=== PATIENT | female | born 1950 | race Caucasian/White ===

== ENCOUNTER 2018-09-24 08:45 | Inpatient (IN) ==
[2018-09-24] MEDS ORDERED: 0.9 % Sodium Chloride 1,000 ML IVC ONE (09:28)
[2018-09-24] MEDS ORDERED: Ondansetron 4 MG/2 ML VIAL IVP ONE (09:28)
--- NOTE | 2018-09-24 10:13 | Emergency Department Note ---
Disposition Clinical Impression: Hypokalemia Pneumonia Qualifiers: Pneumonia type: due to unspecified organism Laterality: right Lung location: unspecified part of lung Qualified Code(s): J18.9 - Pneumonia, unspecified organism Disposition: Admitted As Inpatient Condition: Fair Time of Disposition: 12:34 (Akanksha Maddox ([facility])) General Adult HPI - General Chief complaint: ED General Medical Stated complaint: flu symptoms Time Seen by Provider: 09/24/18 09:26 Source: patient Mode of arrival: ambulatory Limitations: no limitations Nursing Notes Reviewed: Yes Vital Signs Reviewed: Yes - History of Present Illness HPI Narrative: Started last evening having generalized aches fever chills took Tylenol 1 took Motrin 1 been getting relief with it started having vomiting since continue to the night she now presents here to the emergency room states she has had fever chills cough congestion she has had no sore throat she has had no runny nose she aches all over she denies any blurred vision double vision states that she is weak she does not think that she can go home she just feels worn out and drain she denies any distal complaints with complete entire review systems Onset (ago): day(s) Radiation: non-radiation Pain Severity: mild Pain Scale: 3 Improves with: nothing Worsens with: nothing Associated symptoms: Reports: cough, fever/chills, loss of appetite, malaise, nausea/vomiting, shortness of breath, weakness. Denies: confusion, chest pain, diaphoresis, headaches, rash, seizure, syncope Treatments Prior to Arrival: NSAID, Aspirin - Related Data Home Medications Medication Instructions Recorded Confirmed Albuterol Sulfate [Proventil Hfa] 2 puff IH Q4H PRN 09/24/18 09/24/18 Amlodipine Besylate/Benazepril 1 each PO DAILY 09/24/18 09/24/18 [Lotrel 10-20 mg Capsule] Aspirin [Adult Aspirin Regimen] 81 mg PO DAILY 09/24/18 09/24/18 Clopidogrel [Plavix] 75 mg PO DAILY 09/24/18 09/24/18 Ezetimibe [Zetia] 10 mg PO DAILY 09/24/18 09/24/18 Fluticasone Propionate Nasal 50 mcg NS BID 09/24/18 09/24/18 [Flonase] Furosemide [Lasix] 40 mg PO DAILY 09/24/18 09/24/18 HYDROcodone/Acet 7.5/325 mg [Bliss 1 tab PO Q4-6H PRN 09/24/18 09/24/18 7.5-325 mg] Insulin ASPART [Novolog Flexpen] 6 - 8 unit SQ QID 09/24/18 09/24/18 Insulin Glargine,Hum.rec.anlog 62 unit SQ HS 09/24/18 09/24/18 [Lantus Solostar] Ipratropium/Albuterol Neb [Duoneb] 3 ml IH QID 09/24/18 09/24/18 Linagliptin [Tradjenta] 5 mg PO DAILY 09/24/18 09/24/18 Losartan/Hydrochlorothiazide 1 each PO BID 09/24/18 09/24/18 [Losartan-Hctz 100-25 mg Tab] Metformin HCl [Fortamet] 1,000 mg PO BID 09/24/18 09/24/18 Metoprolol Succinate [Toprol Xl] 200 mg PO DAILY 09/24/18 09/24/18 Potassium Chloride [Klor-Con 10] 10 meq PO DAILY 09/24/18 09/24/18 Umeclidinium Brm/Vilanterol Tr 1 each IH DAILY 09/24/18 09/24/18 [Anoro Ellipta 62.5-25 Mcg INH] Allergies Allergy/AdvReac Type Severity Reaction Status Date / Time Amoxicillin [From Trimox] Allergy Rash Verified 09/24/18 08:59 Penicillins Allergy Rash Verified 09/24/18 08:59 All systems ED: reviewed and negative except as stated. Review of Systems: As Per HPI Constitutional: Reports: fever, chills, weakness Eyes: Denies: eye pain, eye discharge ENT ED: Reports: congestion. Denies: ear pain, throat pain Cardiovascular: Reports: dyspnea on exertion. Denies: chest pain, palpitations Respiratory: Reports: cough, wheezes. Denies: sputum production Gastrointestinal: Reports: abdominal pain, nausea, vomiting. Denies: diarrhea Genitourinary: Denies: urgency, dysuria Musculoskeletal: Denies: back pain Integumentary: Denies: rash Neurological: Denies: headache Psychiatric: Denies: anxiety Endocrine: Reports: fatigue Hematological/Lymphatic: Denies: easy bleeding Allergic/Immunologic: Denies: facial swelling Past Medical History - Past Medical History Attestation: Yes The following information was validated with the patient. Source: patient, old records reviewed, nursing notes reviewed Medical history: Reports: atrial fibrillation, COPD, diabetes, hyperlipidemia, hypertension, peripheral artery disease Surgical history: Reports: cholecystectomy, other Psychiatric history: Reports: no psych history [employer] history: Reports: no [employer] history - Social History Smoking Status: Current every day smoker Smokeless Tobacco Status: No Alcohol use: Reports: none Drug use: Reports: none Physical Exam - General Limitations: no limitations General appearance: alert, in no apparent distress - Head Head exam: atraumatic, normocephalic, normal inspection - Eye Eye exam: Present: normal appearance, PERRL, EOMI - ENT ENT exam: normal exam, normal oropharynx, mucous membranes moist, TM's normal bilaterally, normal external ear exam - Neck Neck exam: Present: normal inspection, full ROM, trachea midline - Chest Chest inspection: Present: normal inspection, symmetric chest wall rise - Respiratory Respiratory exam: Present: normal lung sounds bilaterally - Cardiovascular Cardiovascular exam: Present: regular rate, normal rhythm, normal heart sounds - Abdominal Exam Abdominal exam: Present: soft, Non-Tender, normal bowel sounds. Absent: mass, pulsatile mass - Extremities Exam Extremities exam: Present: normal inspection, full ROM, normal capillary refill. Absent: tenderness, pedal edema, joint swelling, calf tenderness - Expanded Lower Extremity Exam Neurovascular/Tendon exam: Present: normal capillary refill, normal fine/light touch Gait: observed and normal - Back Exam Back exam: Present: normal inspection, full ROM. Absent: muscle spasm - Neurological Exam Neurological exam: Present: alert, oriented X3, CN II-XII intact, normal gait - Psychiatric Psychiatric exam: Present: normal affect, normal mood - Skin Skin exam: Present: warm, dry, intact, normal color - Other Other exam information: Ill appearing much older than stated elderly female appears frail Course Course Narrative: Patient seen and examined workup shows that she has what appears to be consistent with viral pneumonia the patient home she is too weak tired her hypokalemia will admit her for observation after Mizer stable Vital Signs Temperature 98.4 F 09/24/18 08:51 Pulse Rate 110 09/24/18 08:51 Respiratory Rate 16 09/24/18 08:51 Blood Pressure 152/81 09/24/18 08:51 O2 Sat by Pulse Oximetry 95 09/24/18 08:51 Temperature 98.7 F 09/24/18 23:48 Pulse Rate 71 09/24/18 23:48 Respiratory Rate 19 09/24/18 23:48 Blood Pressure 172/68 09/24/18 23:48 O2 Sat by Pulse Oximetry 94 09/24/18 23:48 Oxygen Delivery Oxygen Delivery Room Air Medical Decision Making - MDM Narrative Medical decision making narrative: Pneumonia bronchitis influenza - Medical Records Medical records reviewed: Yes I reviewed the patient's medical records. - Lab Data Lab results reviewed: Yes I reviewed the patient's lab results. Result diagrams: 09/24/18 10:00 09/24/18 20:15 Lab Results 09/24/18 09/24/18 Range/Units 10:00 10:00 WBC 11.2 H (4.3-11.1) K/mcL RBC 4.98 H (3.82-4.97) M/mcL Hgb 16.3 H (11.5-15.4) g/dL Hct 47.0 H (35.3-44.9) % MCV 94.4 (83.0-100.0) fL MCH 32.7 (28.0-33.3) pg MCHC 34.7 (31.6-35.5) g/dL RDW 13.2 (11.5-14.5) % Plt Count 262 (140-400) K/mcL MPV 9.0 L (9.4-12.4) fL Immature Gran % 0.4 (0-4) % Seg Neutrophils % 87.8 % Lymphocytes % 9.3 % Monocytes % 2.4 % Eosinophils % 0.0 % Basophils % 0.1 % Neutrophils # 10.5 H (1.6-8.9) K/mcL Lymphocytes # 1.1 (0.6-4.6) K/mcL Monocytes # 0.3 (0.0-1.3) K/mcL Eosinophils # 0.0 (0.0-0.6) K/mcL Basophils # 0.0 (0.0-0.2) K/mcL Sodium 133 L (136-145) mEq/L Potassium 2.9 L (3.5-5.1) mEq/L Chloride 92 L (98-107) mEq/L Carbon Dioxide 26 (23-29) mEq/L BUN 12 (8-23) mg/dL Creatinine 0.68 (0.60-1.20) mg/dL Est GFR ( Amer) > 60 (> 60) Est GFR (Non-Af Amer) > 60 (> 60) BUN/Creatinine Ratio 18 (6-26) Glucose 258 H (70-105) mg/dL Calculated Osmolality 285 (280-300) Calcium 10.0 (8.6-10.3) mg/dL - Radiology Data Radiology results reviewed: Yes I reviewed the patient's radiology results. ITS Impressions Chest X-Ray 09/24/18 09:26 IMPRESSION: Increased perihilar markings with prominence of interstitial lung markings. Findings may be seen in setting of atypical or viral infection, or pulmonary interstitial edema. Correlation with volume status is recommended. No focal consolidation identified. No significant pleural effusion. D/ / 09/24/2018 10:31:18 Jaswinder Sauceda MD / [facility] Interpreting Provider: Jaswinder Sauceda MD Critical Care Time Critical Care Time: No
[2018-09-24 10:32] LABS: Hemoglobin 16.3 g/dL (11.5-15.4); Mean Corpuscular HGB Conc 34.7 g/dL (31.6-35.5); Mean Corpuscular Hemoglobin 32.7 pg (28.0-33.3); Mean Corpuscular Volume 94.4 fL (83.0-100.0); Platelet Count 262 K/mcL (140-400); Red Blood Count 4.98 M/mcL (3.82-4.97); Red Cell Distribution Width 13.2 % (11.5-14.5)
[2018-09-24 10:39] LABS: BUN/Creatinine Ratio 18 (6-26); Blood Urea Nitrogen 12 mg/dL (8-23); Carbon Dioxide 26 mEq/L (23-29); Chloride 92 mEq/L (98-107); Glucose 258 mg/dL (70-105); Osmolality,Calculated 285 (280-300); Potassium 2.9 mEq/L (3.5-5.1); Sodium 133 mEq/L (136-145); eGFR For Non-African Americans > 60 (> 60)
[2018-09-24] MEDS ORDERED: Azithromycin 500 MG in D5% in Water 250 ML IVPB ONE (11:31)
[2018-09-24] MEDS ORDERED: Potassium Effervescent 25 MEQ TABLET.EFF PO ONE (11:37)
[2018-09-24 12:26] LABS: Basophils % 0.1 %; Immature Granulocytes % 0.4 % (0-4); Lymphocytes # 1.1 K/mcL (0.6-4.6); Lymphocytes % 9.3 %; Monocytes # 0.3 K/mcL (0.0-1.3); Monocytes % 2.4 %; Neutrophils # 10.5 K/mcL (1.6-8.9); Segmented Neutrophils % 87.8 %
[2018-09-24] MEDS ORDERED: *HR* Dextrose 50 % in Water (Syg) 50 ML SYRINGE IVP PRN (14:14)
[2018-09-24] MEDS ORDERED: Dextrose Gel 15 GM/37.5 ML TUBE PO PRN ×2 (14:14)
[2018-09-24] MEDS ORDERED: D5% in Water 1,000 ML IVC PRN (14:14)
[2018-09-24] MEDS ORDERED: Naloxone 0.4 MG/ML INJ IVP PRN (14:14)
[2018-09-24] MEDS ORDERED: *HR* HYDROcodone/Acet 7.5/325 mg TABLET PO PRN (14:14)
[2018-09-24] MEDS ORDERED: NON-FORMULARY MEDICATION 1 EACH EACH (Losartan/Hydrochlorothiazide [Losartan-Hctz 100-25 M PO SCH ×2 (15:22→21:00)
[2018-09-24] MEDS ORDERED: NON-FORMULARY MEDICATION 1 EACH EACH (Amlodipine Besylate/Benazepril [Lotrel 10-20 Mg Caps PO SCH (15:24)
[2018-09-24] MEDS: Insulin LISPRO 300 UNITS/3 ML VIAL SQ SCH (15:27)
[2018-09-24] MEDS: *HR* Metformin 500 MG TABLET PO SCH (15:27)
[2018-09-24] MEDS: Ondansetron ODT 4 MG TAB.RAPDIS SL PRN ×2 (15:29→20:59)
[2018-09-24] MEDS: Metoprolol XL (24 HR) Succ 50 MG TAB.ER.24H PO SCH (15:54)
[2018-09-24] MEDS: Furosemide 40 MG TABLET PO SCH (15:54)
[2018-09-24] MEDS: Ipratropium/Albuterol Neb 3 ML IH SCH ×2 (15:59→23:36)
[2018-09-24] MEDS ORDERED: INSULIN ASPART 6 UNIT SQ SCH (17:00)
[2018-09-24] MEDS: amLODIPine 5 MG TABLET PO SCH (18:45)
--- NOTE | 2018-09-24 20:13 | Internal Med History&Physical ---
Date of Encounter: 09/24/18 Time of Encounter: 20:08 Assessment and Plan (1) Pneumonia Current visit: Yes Status: Acute Patient has had severe achiness and pain and lassitude nausea and vomiting. Focal finding on chest x-ray consistent with pneumonia, likely viral. Interestingly she does not have cough or significant audible lung findings. Antibiotics were initiated in the emergency room and we will continue. I would also like to add IV fluids. Will reassess in the morning. Currently no respiratory distress issues. Repeat CBC to recheck leukocytosis. Tobacco cessation discussed Qualifiers: Pneumonia type: due to unspecified organism Laterality: right Lung location: unspecified part of lung Qualified Code(s): J18.9 - Pneumonia, unspecified organism (2) Diabetes mellitus Current visit: Yes Status: Chronic Patient has chronic history of diabetes. On admission her sugars were elevated. We resumed her usual dosing and also sliding scale. We will continue to monitor. Will guard against hypoglycemia. Her last glycohemoglobin was in the 7.7% range in June. Qualifiers: Diabetes mellitus type: type 2 Diabetes mellitus terminal operator insulin use: with terminal operator use Diabetes mellitus complication status: with circulatory complication Diabetes mellitus complication detail: with other circulatory complications Qualified Code(s): E11.59 - Type 2 diabetes mellitus with other circulatory complications; Z79.4 - adjunct faculty for medical terminology (current) use of insulin (3) Peripheral vascular disease Current visit: Yes Status: Chronic Chronic known lower extremity vascular disease and previous bilateral iliac stents placed. Currently has cyanotic left great toe with poor capillary refill. She does not have any tenderness in her left lower extremity. She has no history of pain at rest. She has pain when she walks, but she also has radicular pain from her back. I do not think this is an acute thrombotic event. She had ABIs done a few days ago which showed markedly diminished perfusion to the left lower extremity and particularly at the ankle. She says that she had an appointment for Thursday with Dr. Lucas in follow-up of that test, but the appointment was canceled and rescheduled by that office. (4) Tobacco use Current visit: Yes Status: Chronic Chronic tobacco use of one pack of cigarettes per day. Tobacco cessation has been discussed that I offered assistance. (5) Hypokalemia Current visit: Yes Status: Acute Potassium 2.9. She was given IV supplement in the ER. We will recheck potassium and will likely be adding potassium to her IV fluids for maintenance. I suspect this is from vomiting and diarrhea. (6) Hyponatremia Current visit: Yes Status: Acute Hyponatremia with sodium 133. I suspect from her vomiting and diarrhea. Will reassess in the morning. IV fluids to be restarted (7) Nausea Current visit: Yes Status: Acute Nonspecific nausea and she request more Zofran. Her abdomen is soft and nontender and no focal findings. (8) Atrial fibrillation Current visit: Yes Status: Chronic Primary long-standing chronic atrial fibrillation. She is not on full anticoagulation. I will review her office and cardiac records when eCW is back up. She is having no angina or acute cardiac symptoms. Qualifiers: Atrial fibrillation type: chronic Qualified Code(s): I48.2 - Chronic atrial fibrillation (9) Sleepiness Current visit: Yes Status: Acute She appears to be excessively sleepy, she said she did not sleep last night. When she is awake she is very clear, very coherent, good historian, etc. No hallucinations. Not up tended. No confusion. 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 She does not recall having this worked up in the past. She has known peripheral vascular disease and revascularization. She is a smoker. We will arrange as an outpatient to have dopplers. (11) DVT prophylaxis Current visit: Yes Status: Acute She is currently on aspirin and Plavix. We anticipate she will be ambulatory and leaving in the next 24 hours or so. Will not initiate Lovenox at the present time. Internal Medicine - H&P: HPI Chief complaint: I was aching and throbbing all over Admitted From: Emergency Dept Plans for Post Hospital Care: Home History of present illness: Ms. Taveras is a 68 year old female with known history of hypertension, diabetes, peripheral vascular disease and previous iliac stents, COPD, atrial fibrillation and multiple other medical problems. She states she was her usual self until yesterday evening. "I started having aching and throbbing all over". She could not sleep last night. She took melatonin to help. She still felt ill today. She had 4-5 episodes of loose stool yesterday, decreased urine output last night and only twice today. She has had very little to eat and virtually no liquids. She denies a cardiac type chest pain, no coughing or dyspnea. She states her "abdomen hurts" but no localizing area of tenderness. She has had nausea and required Zofran. She vomited 4 times yesterday, none today but has nausea. No unusual exposures. No recent travels. After being in the ER she says she feels somewhat better but still has nausea and has now had recurrence of her usual back pain she has had no hydrocodone since yesterday. She denies any localizing abdominal pain, tearing or searing throbbing type pain in her back or abdomen. She does continue to smoke a pack of cigars per day. She typically is very active "always on the right", goes to the store, takes care of grandchildren etc. 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 In the ER she was found to have an elevated white blood cell count of 11,000. Chest x-ray suggestive of possible pneumonia, likely viral. She was hypoxic and placed on oxygen. She was very weak and extremely sleepy and tired and felt it was unsafe to send her home and needed further evaluation. She is also found to be significantly hypokalemic with a potassium of 2.9. At that point it was recommended that she be admitted to an observation bed Past [facility] HX - Past Medical History Medical history: atrial fibrillation, COPD, diabetes, fibromyalgia, hyperlipidemia, hypertension, peripheral artery disease (She states she has had lower extremity bilateral revascularization. She denies claudication), seizures (Had seizures post vaginal delivery area and no recurrence or new medications), other (History of obstructive sleep apnea but cannot afford the CPAP machine) Psychiatric history: no psych history - Past Surgical History Surgical History: cholecystectomy, orthopedic, other (Knee scoping for meniscus repair), other, vascular surgery (Bilateral femoral/iliac surgeries) Additional surgical history: Stents in legs - Social History Smoking Status: Current every day smoker (One pack per day) Packs per day: 1 Smokeless Tobacco Status: No Alcohol use: none Drug use: none Occupational status: previously employed (Previously worked for home health and [facility] [facility] rehab unit) Current living situation: Home - Independent Activity Level: Independent ambulation Recent Out of Country Travel Within the Last 8 Weeks: No Exposure or Possible Exposure to Illness During Travel: No - Family History Mother Living Status: Age at : 51 Cause of : Heart attack Hx Family Cardiac Disorders: Yes (History of hypertension) Hx Family Neurologic Disorders: Yes (History of Parkinson's disease) Father Living Status: Age at : 60 Cause of : Bowel rupture, alcoholism Brother Living Status: Hx Family Cancer: Yes (Liver cancer, status post liver transplant) Sister Living Status: Cause of : Heart attack Internal Medicine - H&P: Meds Albuterol Sulfate [Proventil Hfa] 2 puff IH Q4H PRN 09/24/18 [History] Amlodipine Besylate/Benazepril [Lotrel 10-20 mg Capsule] 1 each PO DAILY [History] Aspirin [Adult Aspirin Regimen] 81 mg PO DAILY 09/24/18 [History] Clopidogrel [Plavix] 75 mg PO DAILY 09/24/18 [History] Ezetimibe [Zetia] 10 mg PO DAILY 09/24/18 [History] Fluticasone Propionate Nasal [Flonase] 50 mcg NS BID 09/24/18 [History] Furosemide [Lasix] 40 mg PO DAILY 09/24/18 [History] HYDROcodone/Acet 7.5/325 mg [Staples 7.5-325 mg] 1 tab PO Q4-6H PRN 09/24/18 [History] Insulin ASPART [Novolog Flexpen] 6 - 8 unit SQ QID 09/24/18 [History] Insulin Glargine,Hum.rec.anlog [Lantus Solostar] 62 unit SQ HS 09/24/18 [History] Ipratropium/Albuterol Neb [Duoneb] 3 ml IH QID 09/24/18 [History] Linagliptin [Tradjenta] 5 mg PO DAILY 09/24/18 [History] Losartan/Hydrochlorothiazide [Losartan-Hctz 100-25 mg Tab] 1 each PO BID 09/24/18 [History] Metformin HCl [Fortamet] 1,000 mg PO BID 09/24/18 [History] Metoprolol Succinate [Toprol Xl] 200 mg PO DAILY 09/24/18 [History] Potassium Chloride [Klor-Con 10] 10 meq PO DAILY 09/24/18 [History] Umeclidinium Brm/Vilanterol Tr [Anoro Ellipta 62.5-25 Mcg INH] 1 each IH DAILY 09/24/18 [History] Allergy/AdvReac Type Severity Reaction Status Date / Time Amoxicillin [From Trimox] Allergy Rash Verified 09/24/18 08:59 Penicillins Allergy Rash Verified 09/24/18 08:59 - Constitutional Constitutional: anorexia, fatigue, malaise, no chills, no fever(s), no falls, no night sweats, no weakness - EENT Eyes: no blurry vision, no change in vision, no loss of vision, no photophobia Ears: other (Has a history of chronic perforation of the right eardrum and previous surgeries), no ear discharge, no ear pain Nose, mouth and throat: no dental pain, no dry mouth, no neck pain, no sinus pressure, no sore throat Additional comments: She wears a full set of dentures. - Breasts Breasts: no pain - Cardiovascular Cardiovascular ROS IM: no chest pain, no dyspnea, no dyspnea on exertion, no edema, no irregular heart rhythm, no palpitations, no syncope - Respiratory Respiratory: no cough, no dyspnea, no hemoptysis, no dyspnea on exertion, no wheezing Additional comments: Uses her inhalers and nebulizer machine only on a when necessary basis - Gastrointestinal Gastrointestinal: abdominal pain (Generalized abdominal achiness, low localizing pain.), change in bowel habits (She has had loose stools 3 or 4 times yesterday, better today.), nausea, vomiting (Vomiting for 3-4 times yesterday, none today), no belching, no coffee ground emesis, no constipation, no cramping, no heartburn, no hematemesis, no melena - Genitourinary Genitourinary: urinary incontinence (Occasional chronic urinary incontinence), no dysuria, no flank pain, no urinary frequency, no vaginal discharge Menstruation: post menopausal - Musculoskeletal Musculoskeletal ROS IM: back pain (Chronic back pain, she states she is soon to have injections by Dr. Gunter) - Integumentary Integumentary IM: no erythema, no new lesions, no rash, no unusual bruising, no jaundice - Neurological Neurological ROS: no dizziness, no focal weakness, no frequent falls, no memory loss, no vertigo, no weakness - Psychiatric Psychiatric: no confusion, no depression, no difficulty concentrating - Endocrine Additional comments: She feels hot tonight and would like to have a family - Allergic/Immunologic Allergic/Immunologic: no wheezing - Constitutional Vitals: Temp Pulse Resp BP Pulse Ox 98.9 F 65 17 192/76 93 09/24/18 19:36 09/24/18 19:36 09/24/18 19:36 09/24/18 19:36 09/24/18 19:36 General appearance: Present: A&O X 3, no acute distress, answers questions appropriately Exam: She looks very sleepy though. She was able to answer all my questions appropriately, confirm her medications and past history very exactly but nodded off to sleep at times - Head Head exam: Present: atraumatic - Eye Eye exam: Present: normal appearance, PERRL. Absent: conjunctival injection, scleral icterus Pupils: Present: PERRL - ENT ENT exam: Present: mucous membranes dry (Push her pharynx is very dry. Tongue is fissured.), normal external ear exam Additional comments: Chronic perforation right tympanic membrane about 50%. Left side is normal - Neck Neck exam general surgery: Present: full ROM. Absent: lymphadenopathy, tenderness, nuchal rigidity, thyromegaly Additional comments: Mid to low pitched bilateral carotid bruits - Respiratory Respiratory exam: Present: CTAB. Absent: accessory muscle use, prolonged expiratory phase, rales, respiratory distress, rhonchi, stridor, wheezes, tachypnea - Cardiovascular Cardiovascular exam: Present: irregular rhythm, +S1, +S2 Additional comments: Slightly irregularly irregular rhythm with controlled rate. - GI/Abdominal GI/Abdominal exam: Present: soft, no peritoneal signs. Absent: guarding, hepatomegaly, hyperactive bowel sounds, hypoactive bowel sounds, mass, pulsatile mass, rebound, splenomegaly, tenderness - Extremities Exam Extremities exam: Present: full ROM. Absent: calf tenderness, joint swelling, mottling, pedal edema, tenderness Additional comments: Decreased capillary refill on the left great toe and some great purple coloration. I cannot feel dorsalis pedis pulse. The foot is moderately warm and about the same as the opposite side. Right foot shows good capillary refill and good results pedis pulse. I could not discern a good femoral pulse on either side, maybe slight on the right. Cannot feel posterior tibial pulse on the left. - Back Exam Additional comments: No midline spine localized tenderness. No CVAT - Neurological Exam Neurological exam: Present: alert, oriented X3, no focal deficits Additional comments: However she was very sleepy. - Psychiatric Psychiatric exam: Present: normal mood. Absent: agitated, anxious, depressed - Skin Skin exam: Present: mottled (Left great toe was somewhat purple and grayish in color). Absent: rash Internal Med - H&P Results - Labs CBC & Chem 7: 09/25/18 05:35 09/25/18 05:35 Labs: Short CBC 09/24/18 Range/Units 10:00 WBC 11.2 H (4.3-11.1) K/mcL Hgb 16.3 H (11.5-15.4) g/dL Hct 47.0 H (35.3-44.9) % Plt Count 262 (140-400) K/mcL Neutrophils # 10.5 H (1.6-8.9) K/mcL BMP 09/24/18 10:00 Sodium 133 L Potassium 2.9 L Chloride 92 L Carbon Dioxide 26 BUN 12 Creatinine 0.68 Glucose 258 H Calcium 10.0 Labs have been reviewed. Mild leukocytosis and elevated hemoglobin I suspect from hemoconcentration. Her sodium and potassium are low. We will repeat potassium tonight. Renal function is appropriate. - EKG Data Prior EKG available for review: no (EKG shows atrial fibrillation with controlled rate of 74. Poor R-wave progression consistent with previous anteroseptal ND. Nonspecific T wave changes laterally. One PVC is noted.) - Impressions ITS Impressions Chest X-Ray 09/24/18 09:26 IMPRESSION: 1. Increased perihilar markings with prominence of interstitial lung markings. Findings may be seen in setting of atypical or viral infection, or pulmonary interstitial edema. Correlation with volume status is recommended. 2. No focal consolidation identified. No significant pleural effusion. D/ / 09/24/2018 10:31:18 Jaswinder Sauceda MD / [facility] Interpreting Provider: Jaswinder Sauceda MD
[2018-09-24] MEDS: *HR* HYDROcodone/Acet 5/325 mg TABLET PO PRN (20:56)
[2018-09-24] MEDS: Fluticasone Propionate Nasal 50 MCG/SPRAY BOTTLE NS SCH (20:59)
[2018-09-24] MEDS: Insulin DETEMIR 100 UNIT/ML X5UNITS SQ SCH (21:00)
[2018-09-24] MEDS: 0.9 % Sodium Chloride w KCl 20 MEQ/1,000 ML MLS IVC SCH (23:37)
[2018-09-25] MEDS: *HR* HYDROcodone/Acet 5/325 mg TABLET PO PRN ×5 (01:52→20:57)
[2018-09-25] MEDS: Ondansetron ODT 4 MG TAB.RAPDIS SL PRN ×4 (04:39→20:59)
[2018-09-25] MEDS: Ipratropium/Albuterol Neb 3 ML IH SCH ×4 (04:39→23:27)
[2018-09-25 06:11] LABS: Basophils % 0.1 %; Hematocrit 46.2 % (35.3-44.9); Hemoglobin 16.2 g/dL (11.5-15.4); Immature Granulocytes % 0.4 % (0-4); Lymphocytes # 2.4 K/mcL (0.6-4.6); Lymphocytes % 11.7 %; Mean Corpuscular HGB Conc 35.1 g/dL (31.6-35.5); Mean Corpuscular Hemoglobin 33.1 pg (28.0-33.3); Mean Corpuscular Volume 94.3 fL (83.0-100.0); Mean Platelet Volume 9.5 fL (9.4-12.4); Monocytes # 1.2 K/mcL (0.0-1.3); Monocytes % 5.9 %; Neutrophils # 16.9 K/mcL (1.6-8.9); Platelet Count 286 K/mcL (140-400); Segmented Neutrophils % 81.9 %
[2018-09-25 06:13] LABS: INR 1.1
[2018-09-25 06:16] LABS: Activated Partial Thrombo Time 26.7 Seconds (26.0-36.0)
[2018-09-25 06:25] LABS: BUN/Creatinine Ratio 18 (6-26); Blood Urea Nitrogen 11 mg/dL (8-23); Calcium 9.2 mg/dL (8.6-10.3); Carbon Dioxide 33 mEq/L (23-29); Chloride 93 mEq/L (98-107); Glucose 67 mg/dL (70-105); Osmolality,Calculated 278 (280-300); Potassium 2.7 mEq/L (3.5-5.1); Sodium 135 mEq/L (136-145); eGFR For Non-African Americans > 60 (> 60)
[2018-09-25] MEDS: 0.9 % Sodium Chloride w KCl 20 MEQ/1,000 ML MLS IVC SCH ×2 (07:53→20:06)
[2018-09-25] MEDS: amLODIPine 5 MG TABLET PO SCH (07:54)
[2018-09-25] MEDS: *HR* Metformin 500 MG TABLET PO SCH ×2 (07:54→17:41)
[2018-09-25] MEDS: Insulin LISPRO 300 UNITS/3 ML VIAL SQ SCH ×3 (07:55→17:05)
[2018-09-25] MEDS: Metoprolol XL (24 HR) Succ 50 MG TAB.ER.24H PO SCH (07:55)
[2018-09-25] MEDS: Furosemide 40 MG TABLET PO SCH (07:55)
[2018-09-25] MEDS: Aspirin Enteric Coated 81 MG Tablet PO SCH (07:55)
[2018-09-25] MEDS: Fluticasone Propionate Nasal 50 MCG/SPRAY BOTTLE NS SCH ×2 (07:56→21:00)
[2018-09-25] MEDS: (Ezetimibe [Zetia] 10 MG) PO SCH (07:56)
[2018-09-25] MEDS: (Umeclidinium Brm/Vilanterol Tr [Anoro Ellipta 62.5-2 IH SCH (07:56)
[2018-09-25] MEDS: (Linagliptin [Tradjenta] 5 MG) PO SCH (07:56)
[2018-09-25] MEDS: cefTRIAXone 1,000 MG in Water for inj. (sterile) 20 ML 10 ML IVP SCH (07:57)
[2018-09-25] MEDS ORDERED: NON-FORMULARY MEDICATION 1 EACH EACH (Amlodipine Besylate/Benazepril [Lotrel 10-20 Mg Caps PO SCH (09:00)
[2018-09-25] MEDS ORDERED: Metoprolol XL (24 HR) Succ 50 MG TAB.ER.24H PO SCH (09:00)
[2018-09-25] MEDS ORDERED: Furosemide 40 MG TABLET PO SCH (09:00)
[2018-09-25] MEDS: Azithromycin 500 MG in D5% in Water 250 ML IVPB SCH (09:30)
[2018-09-25] MEDS ORDERED: Isovue-370 500 ML INFUS..BTL IV ONE (12:52)
[2018-09-25] MEDS: Losartan/HCTZ 50-12.5 TABLET PO SCH (13:01)
--- NOTE | 2018-09-25 13:23 | Internal Med Progress Note ---
Date of Encounter: 09/25/18 Time of Encounter: 13:21 - Assessment and plan (1) Pneumonia Current Visit: Yes Status: Acute Assessment and plan: At the present time our working diagnosis is still pneumonia because of the elevated white count, and abnormal chest x-ray, though I am not convinced this is the source of her problem. She remains on Rocephin and Zithromax, her nebulizer and MDI treatments, and when she is asleep her saturations dropped to 87% range and so she continues with her oxygen supplement at 2 L Qualifiers: Pneumonia type: due to unspecified organism Laterality: right Lung location: unspecified part of lung Qualified Code(s): J18.9 - Pneumonia, unspecified organism (2) Abdominal pain Current Visit: Yes Status: Acute Assessment and plan: Patient continues to complain of "stomach pain". She cannot localize it very well. There is no guarding or rebound or rigidity or peritoneal signs. She has nausea. She thinks her abdominal pain is better. However, with her elevated white blood cell count of 20,000 today, still having vague abdominal pain she will have CT scan of the abdomen arranged CHLOE. Qualifiers: Abdominal location: generalized Qualified Code(s): R10.84 - Generalized abdominal pain (3) Diabetes mellitus Current Visit: Yes Status: Chronic Assessment and plan: She has a long-standing history of diabetes and is insulin-dependent. Her blood sugar this morning was low at 62. We will continue her current regimen and sliding scale. Qualifiers: Diabetes mellitus type: type 2 Diabetes mellitus full time paramedic insulin use: with assisted use Diabetes mellitus complication status: with circulatory complication Diabetes mellitus complication detail: with other circulatory complications Qualified Code(s): E11.59 - Type 2 diabetes mellitus with other circulatory complications; Z79.4 - care home (current) use of insulin (4) Peripheral vascular disease Current Visit: Yes Status: Chronic Assessment and plan: Known peripheral vascular disease and previous iliac stent placement bilaterally. However her MALISSA study done earlier this week shows severely declined perfusion on the left lower extremity. She has no rest pain with this. She has follow-up with Dr. Lucas already arranged. (5) Tobacco use Current Visit: Yes Status: Chronic (6) Hypokalemia Current Visit: Yes Status: Acute Assessment and plan: Her potassium is back down to 2.9 range despite increased supplement and IV potassium. Will receive another potassium rider today, continue saline with 20 of potassium per liter, continue her oral supplement. (7) Hyponatremia Current Visit: Yes Status: Acute Assessment and plan: Hyponatremia is nearly resolved with saline IV fluids. We will continue to monitor. (8) Nausea Current Visit: Yes Status: Acute Assessment and plan: Still has some mild nausea. She was able to eat a small amount and had no vomiting. She has had no further stools. CT scan of abdomen being arranged because of the abdominal pain. (9) Atrial fibrillation Current Visit: Yes Status: Chronic Assessment and plan: Chronic history of atrial fibrillation and his rate control. No angina or CHF. Qualifiers: Atrial fibrillation type: chronic Qualified Code(s): I48.2 - Chronic atrial fibrillation (10) Sleepiness Current Visit: Yes Status: Acute Assessment and plan: She still remains very sleepy and she states she has not slept for 2 nights. When awaking, she is alert and coherent and a good historian. No confusion or any obvious neurological changes otherwise. 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 No localizing symptoms. I do not see where she has had a recent carotid Doppler. (12) DVT prophylaxis Current Visit: Yes Status: Acute - Subjective Interval history: Patient thinks that she feels better today. She is not having any coughing except a cough with some mucus production after a nebulizer treatment. She denies any cardiac type chest pain. She has had no vomiting or diarrhea. She thinks she has a little bit of nausea. She states her abdomen "is still sore" but cannot localize an area of concern. Her back pain in the low lumbar area continues as per her chronic history and still requiring hydrocodone every 4-6 hours which is her usual regimen at home. She ate a tiny bit of lunch. She still remains very sleepy and tired and states she did not get any rest last night again. - Constitutional Vitals: Temp Pulse Resp BP Pulse Ox 98.5 F 69 20 160/73 87 09/25/18 11:55 09/25/18 11:55 09/25/18 11:55 09/25/18 11:55 09/25/18 13:06 General appearance: Present: A&O X 3, no acute distress, answers questions appropriately Exam: She appears very sleepy, but she awakens, sits up, has appropriate mentation and alertness and then goes off to sleep again - Neck Neck exam general surgery: Present: full ROM. Absent: lymphadenopathy, tenderness, nuchal rigidity - Respiratory Additional comments: When patient is lying down she has mild wheezes heard bilaterally. When I sat her forward her lungs show diminished breath sounds but clear. No respiratory distress. No accessory respiratory muscle use. No orthopnea. - Cardiovascular Cardiovascular exam: Present: irregular rhythm, +S1, +S2. Absent: systolic murmur - GI/Abdominal Additional comments: Abdomen shows mild diffuse tenderness without localization. No guarding or rebound or rigidity. The abdomen is soft. No obvious organomegaly. No pulsatile masses. No jaundice. - Extremities Exam Extremities exam: Absent: calf tenderness, joint swelling Additional comments: No acute change in the left lower extremity from last night. The great toe and distal foot is mildly cyanotic. Both feet are cool. I cannot discern a dorsalis pedis or posterior tibial pulse on the left side. But there is no tenderness, no edema, no open lesions. Right side shows good posterior tibial and dorsalis pedis pulse. There is no change from last evening. - Back Exam Back exam: Absent: CVA tenderness (L), CVA tenderness (R) Additional comments: She has tenderness in the lower lumbar and sacral midline region. - Neurological Exam Neurological exam: Present: CN II-XII intact, oriented X3, no focal deficits Additional comments: But she still remains very sleepy in between examinations, nursing interventions, toileting. - Skin Additional comments: As an extremity examination above Internal Medicine: Result - Labs CBC & Chem 7: 09/25/18 05:35 09/25/18 05:35 Labs: Short CBC 09/25/18 Range/Units 05:35 WBC 20.6 H D (4.3-11.1) K/mcL Hgb 16.2 H (11.5-15.4) g/dL Hct 46.2 H (35.3-44.9) % Plt Count 286 (140-400) K/mcL Neutrophils # 16.9 H (1.6-8.9) K/mcL BMP White blood cell count has elevated from 11,000-20,000. Hemoglobin has been stable. Sodium improved from 133 to 135. Potassium is back down to 2.7, down from 3.0 after IV supplement last night. Renal function is normal. Glucose low this morning compared to her admission. 09/24/18 09/25/18 20:15 05:35 Sodium 135 L Potassium 3.0 L 2.7 L Chloride 93 L Carbon Dioxide 33 H BUN 11 Creatinine 0.62 Glucose 67 L Calcium 9.2 - ABG Interpretation ABG results: PT/INR, D-dimer PT 12.0 Seconds (9.4-12.1) 09/25/18 05:35 - Impressions Impressions Chest X-Ray 09/24/18 09:26 IMPRESSION: 1. Increased perihilar markings with prominence of interstitial lung markings. Findings may be seen in setting of atypical or viral infection, or pulmonary interstitial edema. Correlation with volume status is recommended. 2. No focal consolidation identified. No significant pleural effusion. D/ / 09/24/2018 10:31:18 Jaswinder Sauceda MD / [facility]olome Interpreting Provider: Jaswinder Sauceda MD Consult Discharge Plan - Plan Referrals: Savanna Zuleta, PRODUCT TESTER [Primary Care Provider] -
--- NOTE | 2018-09-25 15:33 | Event Note ---
Date of Encounter: 09/25/18 Time of Encounter: 15:31 CT scan of abdomen and pelvis was basically unremarkable. Chronic ovarian cyst without changes noted. No signs of acute infection/abscess/aneurysm etc. Current working diagnosis is pulmonary infection with elevated WBC, mild hypoxia, slightly abnormal chest x-ray. Continue current treatment. Follow-up lab work ordered. Repeat potassium tonight as well as checking liver functions. Admit patient from observation status to full inpatient status.
[2018-09-25 17:53] LABS: Bilirubin,Urine Negative (Negative); Blood,Urine Negative (Negative); Clarity,Urine Clear (Clear); Color,Urine Yellow (Yellow); Glucose,Urine (UA) Normal (Normal); Ketones,Urine Negative (Negative); Leukocyte Esterase,Urine Negative (Negative); Nitrite,Urine Negative (Negative); Protein,Urine 30 mg/dL (Neg-Trace); Specific Gravity,Urine 1.015 (1.010-1.025); Urobilinogen,Urine Normal (Normal)
[2018-09-25 17:57] LABS: RBC,Urine 0-3 per hpf (0-3); Squamous Epithelial Cell,Urine Few per lpf (None-Few)
[2018-09-25] MEDS: Insulin DETEMIR 100 UNIT/ML X5UNITS SQ SCH (21:03)
[2018-09-25 21:21] LABS: Albumin 3.8 g/dL (3.5-5.7); Albumin/Globulin Ratio 1.4 (1.1-2.2); Bilirubin,Direct 0.4 mg/dL (0.0-0.2); Bilirubin,Indirect 1.2 mg/dL (0.0-1.2); Bilirubin,Total 1.6 mg/dL (0.3-1.0); Globulin 2.7 g/dL (2.4-3.5); Potassium 2.9 mEq/L (3.5-5.1); Total Protein 6.5 g/dL (6.4-8.9)
[2018-09-26] MEDS: *HR* HYDROcodone/Acet 5/325 mg TABLET PO PRN ×3 (00:56→09:10)
[2018-09-26] MEDS: 0.9 % Sodium Chloride w KCl 20 MEQ/1,000 ML MLS IVC SCH (04:16)
[2018-09-26] MEDS: Ondansetron ODT 4 MG TAB.RAPDIS SL PRN ×2 (04:30→09:17)
[2018-09-26] MEDS: Ipratropium/Albuterol Neb 3 ML IH SCH ×2 (04:31→09:12)
[2018-09-26 04:50] LABS: Basophils % 0.1 %; Eosinophils # 0.1 K/mcL (0.0-0.6); Eosinophils % 0.8 %; Hematocrit 42.7 % (35.3-44.9); Immature Granulocytes % 0.6 % (0-4); Lymphocytes # 2.5 K/mcL (0.6-4.6); Lymphocytes % 16.1 %; Mean Corpuscular HGB Conc 35.1 g/dL (31.6-35.5); Mean Corpuscular Hemoglobin 32.8 pg (28.0-33.3); Mean Corpuscular Volume 93.4 fL (83.0-100.0); Mean Platelet Volume 9.5 fL (9.4-12.4); Monocytes # 1.2 K/mcL (0.0-1.3); Monocytes % 7.5 %; Neutrophils # 11.7 K/mcL (1.6-8.9); Platelet Count 254 K/mcL (140-400); Red Blood Count 4.57 M/mcL (3.82-4.97); Red Cell Distribution Width 12.6 % (11.5-14.5); Segmented Neutrophils % 74.9 %
[2018-09-26 05:07] LABS: BUN/Creatinine Ratio 19 (6-26); Blood Urea Nitrogen 10 mg/dL (8-23); Calcium 8.8 mg/dL (8.6-10.3); Carbon Dioxide 29 mEq/L (23-29); Chloride 88 mEq/L (98-107); Glucose 122 mg/dL (70-105); Osmolality,Calculated 266 (280-300); Potassium 3.1 mEq/L (3.5-5.1); Sodium 128 mEq/L (136-145); eGFR For Non-African Americans > 60 (> 60)
[2018-09-26] MEDS ORDERED: *HR* Enoxaparin 40 MG/0.4 ML SYRINGE SQ SCH (06:00)
[2018-09-26 07:57] VITALS: BP 122/76
[2018-09-26] MEDS: Insulin LISPRO 300 UNITS/3 ML VIAL SQ SCH ×2 (08:23→12:41)
[2018-09-26] MEDS: Azithromycin 500 MG in D5% in Water 250 ML IVPB SCH (09:11)
[2018-09-26] MEDS: cefTRIAXone 1,000 MG in Water for inj. (sterile) 20 ML 10 ML IVP SCH (09:11)
[2018-09-26] MEDS: amLODIPine 5 MG TABLET PO SCH (09:17)
[2018-09-26] MEDS: Losartan/HCTZ 50-12.5 TABLET PO SCH (09:18)
[2018-09-26] MEDS: Aspirin Enteric Coated 81 MG Tablet PO SCH (09:24)
[2018-09-26] MEDS: Metoprolol XL (24 HR) Succ 50 MG TAB.ER.24H PO SCH (09:24)
[2018-09-26] MEDS: Furosemide 40 MG TABLET PO SCH (09:24)
[2018-09-26] MEDS: *HR* Metformin 500 MG TABLET PO SCH (09:24)
[2018-09-26] MEDS: Fluticasone Propionate Nasal 50 MCG/SPRAY BOTTLE NS SCH (09:26)
[2018-09-26] MEDS: (Ezetimibe [Zetia] 10 MG) PO SCH (09:26)
[2018-09-26] MEDS: (Umeclidinium Brm/Vilanterol Tr [Anoro Ellipta 62.5-2 IH SCH (09:37)
[2018-09-26] MEDS: (Linagliptin [Tradjenta] 5 MG) PO SCH (09:37)
--- NOTE | 2018-09-26 14:07 | Discharge Summary ---
- NOTES TO OUTPATIENT PROVIDER Notes to Outpatient Provider: 1. Follow up in 24 hours in the office. 2. Needs follow-up regarding hyponatremia, hypokalemia, nausea and leukocytosis in addition to presumed pneumonia. 3. Has oxygen saturations in the 86-87% range and qualifies for home O2. (Has known sleep apnea but she states she cannot afford CPAP) Date of Encounter: 09/26/18 Time of Encounter: 14:05 - Discharge Diagnosis (1) Pneumonia Priority: Primary Status: Acute Comments: Patient was admitted with not feeling well, hurting all over, elevated white blood cell count and chest x-ray suggestive of possible pneumonia. Her white blood cell count peaked at 20,000 and is now back to 15,000 after being treated with Rocephin and Zithromax. Her lungs are clear. She does have hypoxia, this is likely chronic. She has known sleep apnea but cannot afford CPAP machine. We documented saturation of 86% at rest at one time. Ambulating in the hallway her saturation was 87% and we arranged for home oxygen. She was discharged on 5 more days of Zithromax. Qualifiers: Pneumonia type: due to unspecified organism Laterality: right Lung location: unspecified part of lung Qualified Code(s): J18.9 - Pneumonia, unspecified organism (2) Abdominal pain Priority: Secondary Status: Acute Comments: Patient complaints of abdominal pain that were generalized. She had nausea. Prior to coming to the hospital she had vomiting and diarrhea which resolved. With the spiking of her white blood cell count I did a CT scan to rule out an abdominal abscess or other infectious etiology in the abdomen. It was basically negative except for chronic ovarian cyst. She still has complaints of nausea but has been able to eat, her abdominal examination is normal. Her bowel sounds are back to normal. There are no signs of an acute abdomen. Qualifiers: Abdominal location: generalized Qualified Code(s): R10.84 - Generalized abdominal pain (3) Diabetes mellitus Priority: Secondary Status: Chronic Comments: Patient has diabetes mellitus and is insulin-dependent. During the hospital stay her sugars went from 300s down to the 60s. Some of her insulin doses were held. She was starting to increase her by mouth intake now. She knows how to adjust her insulin at home. Her last glycohemoglobin was 7.5%. Qualifiers: Diabetes mellitus type: type 2 Diabetes mellitus mcfp insulin use: with mcfp use Diabetes mellitus complication status: with circulatory complication Diabetes mellitus complication detail: with other circulatory complications Qualified Code(s): E11.59 - Type 2 diabetes mellitus with other circulatory complications; Z79.4 - jail (current) use of insulin (4) Peripheral vascular disease Priority: Secondary Status: Chronic Comments: Patient has known peripheral vascular disease with history of stent in each iliac artery. She had ABIs done earlier this week and was found to have markedly diminished flow to the left lower extremity and particularly at the left ankle and foot. Her toes, particularly the great toe, remains cyanotic. I cannot palpate any pulses on the left lower extremity She has no pain at rest. When ambulating she complains of pain going down the left lower extremity which she thinks is coming from her back. This may actually be claudication. She had a follow-up appointment with Dr. Lucas that his office canceled and she knows to reschedule that. (5) Tobacco use Priority: Secondary Status: Chronic Comments: We talked about tobacco cessation and offered assistance. She did not require any nicotine patch or have any withdrawal symptoms while hospitalized. (6) Hypokalemia Priority: Secondary Status: Acute Comments: She had hypokalemia which is likely secondary to her vomiting and diarrhea. She required intravenous supplement. I increased her oral supplement at discharge. Potassium was 3.1 currently (7) Hyponatremia Priority: Secondary Status: Acute Comments: Patient had mild hyponatremia on admission and with IV fluids improved. However discharge was 128. She is starting to eat better and I suspect will normalize. We will recheck as an outpatient. (8) Nausea Priority: Secondary Status: Acute Comments: She had continued nausea but her abdominal examination is normal. CT scan abdomen was basically normal. She has good bowel sounds. She is passing gas. No vomiting. She requests to have Phenergan at home if needed. She has had that previously. (9) Atrial fibrillation Priority: Secondary Status: Chronic Comments: Patient has chronic atrial fibrillation which is rate controlled. No angina or CHF noted. Chronically she is not fully anticoagulated. Qualifiers: Atrial fibrillation type: chronic Qualified Code(s): I48.2 - Chronic atrial fibrillation (10) Sleepiness Priority: Secondary Status: Acute Comments: One of her signs and symptoms and the hospital was excessive sleepiness. She told me she had not slept in a few days. Her son says she states up late at night and has a strange sleep pattern. When she is awake and she is fully appropriate and alert and oriented. I ambulated her in the hallway without difficulties. She continues with her opiate pain medication but she is at the same dose that she uses every day. I do not think this is a sensorium or pathological problem. (11) Bilateral carotid bruits Priority: Secondary Status: Chronic Comments: She does have bilateral carotid bruits on auscultation. She has known peripher al vascular disease and sees Dr. Lucas. She has no localizing symptoms for the bruits. (12) Hypoxia Priority: Secondary Status: Acute Comments: She has known sleep apnea but has never been able to afford CPAP machine. Oxygen saturations in the hospital got as low as 86% at rest. When ambulatory she was 87%. Prescription for home oxygen concentrator as well as portable was given to her Hospital course: Ms. Taveras is a 68 year old female was admitted with an acute illness, chest x- ray was consistent with pneumonia, elevated white blood cell count. Please see the diagnoses as above. Patient was discharged in much improved condition. She will follow-up in 24 hours in my office. Discharge discussed with: patient, family Time spent discussing smoking cessation with patient: 3 to 10 minutes - Time Spent with Patient Total time spent providing and/or coordinating discharge services: - Discharge Medications Prescriptions: Promethazine [Phenergan] 25 mg PO Q6HR PRN 7 Days #12 tablet PRN Reason: Nausea amLODIPine [Norvasc] 10 mg PO DAILY #30 tablet Azithromycin 250 mg PO DAILY 5 Days #5 tablet Potassium Chloride [Klor-Con 10] 20 meq PO BID #60 tablet.er Home Medications: Albuterol Sulfate [Proventil Hfa] 2 puff IH Q4H PRN 09/24/18 [History] Aspirin [Adult Aspirin Regimen] 81 mg PO DAILY 09/24/18 [History] Clopidogrel [Plavix] 75 mg PO DAILY 09/24/18 [History] Ezetimibe [Zetia] 10 mg PO DAILY 09/24/18 [History] Fluticasone Propionate Nasal [Flonase] 50 mcg NS BID 09/24/18 [History] Furosemide [Lasix] 40 mg PO DAILY 09/24/18 [History] HYDROcodone/Acet 7.5/325 mg [[place] 7.5-325 mg] 1 tab PO Q4-6H PRN 09/24/18 [History] Insulin ASPART [Novolog Flexpen] 6 - 8 unit SQ QID 09/24/18 [History] Insulin Glargine,Hum.rec.anlog [Lantus Solostar] 62 unit SQ HS 09/24/18 [History] Ipratropium/Albuterol Neb [Duoneb] 3 ml IH QID 09/24/18 [History] Linagliptin [Tradjenta] 5 mg PO DAILY 09/24/18 [History] Losartan/Hydrochlorothiazide [Losartan-Hctz 100-25 mg Tab] 1 each PO BID 09/24/18 [History] Metformin HCl [Fortamet] 1,000 mg PO BID 09/24/18 [History] Metoprolol Succinate [Toprol Xl] 200 mg PO DAILY 09/24/18 [History] Umeclidinium Brm/Vilanterol Tr [Anoro Ellipta 62.5-25 Mcg INH] 1 each IH DAILY 09/24/18 [History] Azithromycin 250 mg PO DAILY 5 Days #5 tablet 09/26/18 [Rx] Potassium Chloride [Klor-Con 10] 20 meq PO BID #60 tablet.er 09/26/18 [Rx] Promethazine [Phenergan] 25 mg PO Q6HR PRN 7 Days #12 tablet 09/26/18 [Rx] amLODIPine [Norvasc] 10 mg PO DAILY #30 tablet 09/26/18 [Rx] Allergies/Adverse Reactions: Allergy/AdvReac Type Severity Reaction Status Date / Time Amoxicillin [From Trimox] Allergy Rash Verified 09/24/18 08:59 Penicillins Allergy Rash Verified 09/24/18 08:59 Date of admission: 09/25/18 15:24 Primary care physician: Savanna Zuleta CNP Consults: 09/24/18 14:14 Consult to Nurse Navigator [CONS] Routine Comment: Discharging clinician: Hernandez Vale Anticipated date of discharge: 09/26/18 - Constitutional Vitals: Temp Pulse Resp BP Pulse Ox 98.6 F 92 16 122/76 92 09/26/18 07:56 09/26/18 07:56 09/26/18 07:56 09/26/18 07:56 09/26/18 07:56 General appearance: Present: A&O X 3, no acute distress, answers questions appropriately Exam: She appears sleepy at times. Otherwise she is alert and appropriate answers questions appropriately ambulated in the hallway without difficulty except for left lower extremity pain having to stop twice - Respiratory Respiratory exam: Present: CTAB - Cardiovascular Cardiovascular exam: Present: irregular rhythm, +S1, +S2. Absent: systolic murmur - GI/Abdominal GI/Abdominal exam: Present: normal bowel sounds, soft, no peritoneal signs. Absent: hepatomegaly, mass, pulsatile mass, rebound, rigid, splenomegaly, tenderness - Extremities Exam Additional comments: Continues to have cyanotic left great toe and distal foot. No open lesions. No tenderness or pain at rest. - Neurological Exam Neurological exam: Present: normal gait, oriented X3, no focal deficits - Patient Status Disposition: Home, Self-Care Condition: Good Functional capacity at discharge: independent ambulation Overall status at discharge: patient is progressing back to baseline - Discharge Instructions Follow Up With: Hernandez Vale MD [Partnered Physician] - 09/27/18 1:45 pm - Diet and Activity Activity: increase activity as tolerated, wear oxygen at all times, wear oxygen at night Diet: diabetic diet, low salt diet
--- NOTE | 2018-09-27 15:35 | Electrocardiograph Report ---
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
== END 2018-09-26 14:45 | disposition home or self-care (01) | DRG 194 ==
LOC: SUPCPDRO → INPGRE 08:45 → EMEROOGRE 08:45 → INPGRE 13:25
PROVIDERS: ADMIT Family Medicine; ATTEND Family Medicine

== ENCOUNTER 2020-01-24 12:32 | Inpatient (IN) ==
[2020-01-24] MEDS ORDERED: 0.9 % Sodium Chloride 500 ML IVC ONE ×2 (13:02→13:58)
[2020-01-24 13:09] LABS: Basophils % 0.1 %; Eosinophils # 0.4 K/mcL (0.0-0.6); Eosinophils % 1.6 %; Hematocrit 44.5 % (35.3-44.9); Hemoglobin 15.2 g/dL (11.5-15.4); Immature Granulocytes % 0.7 % (0-4); Lymphocytes % 8.4 %; Mean Corpuscular HGB Conc 34.2 g/dL (31.6-35.5); Mean Corpuscular Hemoglobin 29.6 pg (28.0-33.3); Mean Corpuscular Volume 86.7 fL (83.0-100.0); Mean Platelet Volume 10.3 fL (9.4-12.4); Monocytes # 2.2 K/mcL (0.0-1.3); Monocytes % 9.1 %; Neutrophils # 19.4 K/mcL (1.6-8.9); Platelet Count 310 K/mcL (140-400); Red Blood Count 5.13 M/mcL (3.82-4.97); Red Cell Distribution Width 13.2 % (11.5-14.5); Segmented Neutrophils % 80.1 %; White Blood Count 24.2 K/mcL (4.3-11.1)
[2020-01-24 13:12] LABS: INR 1.1; Prothrombin Time 12.5 Seconds (9.4-12.1)
[2020-01-24 13:47] LABS: Thyroid Stimulating Hormone 4.321 mcIU/mL (0.340-5.600); Troponin I 0.04 ng/mL (< 0.04)
[2020-01-24] MEDS ORDERED: levoFLOXacin 750 MG/150 ML 750 MG/150 ML BAG IVPB ONE (14:17)
[2020-01-24 14:31] LABS: Bilirubin,Urine Negative (Negative); Blood,Urine Negative (Negative); Clarity,Urine Clear (Clear); Color,Urine Yellow (Yellow); Glucose,Urine (UA) Normal (Normal); Ketones,Urine Negative (Negative); Leukocyte Esterase,Urine Trace (Negative); Nitrite,Urine Negative (Negative); PH,Urine 5.5 pH Units (5.0-8.0); Protein,Urine Negative (Neg-Trace); Urobilinogen,Urine Normal (Normal)
[2020-01-24 14:33] LABS: WBC,Urine 0-3 per hpf (0-3)
[2020-01-24 14:34] LABS: Bacteria,Urine Few per hpf (None-Few)
[2020-01-24 14:37] LABS: Potassium 4.2 mEq/L (3.5-5.1)
[2020-01-24 14:38] LABS: Calcium 9.4 mg/dL (8.6-10.3); Magnesium 2.4 mg/dL (1.6-2.6); Total Protein 7.3 g/dL (6.4-8.9)
[2020-01-24 14:39] LABS: Albumin 4.3 g/dL (3.5-5.7); Albumin/Globulin Ratio 1.4 (1.1-2.2)
[2020-01-24] MEDS ORDERED: 0.9 % Sodium Chloride 1,000 ML IVC SCH ×2 (16:30→16:39)
[2020-01-24] MEDS ORDERED: Naloxone 0.4 MG/ML INJ IVP PRN (16:39)
[2020-01-24] MEDS ORDERED: Ondansetron ODT 4 MG TAB.RAPDIS SL PRN (16:39)
[2020-01-24] MEDS: 0.9 % Sodium Chloride 1,000 ML IVC SCH (17:31)
[2020-01-24] MEDS: *HR* HYDROcodone/Acet 7.5/325 mg TABLET PO PRN ×2 (17:32→23:43)
[2020-01-24] MEDS ORDERED: Meropenem 500 MG in 0.9 % Sodium Chloride Mini Bag 100 ML IVPB SCH (18:00)
[2020-01-24] MEDS ORDERED: Apixaban 2.5 MG TABLET PO SCH (21:00)
[2020-01-24] MEDS: Insulin LISPRO 300 UNITS/3 ML VIAL SQ SCH (21:27)
[2020-01-24] MEDS: Insulin DETEMIR 100 UNIT/ML X5UNITS SQ SCH (21:34)
[2020-01-24] MEDS: tiZANidine 4 MG TABLET PO PRN (21:34)
[2020-01-24] MEDS: Fluticasone Propionate Nasal 50 MCG/SPRAY BOTTLE NS SCH (21:41)
[2020-01-24] MEDS: Ipratropium/Albuterol Neb 3 ML IH SCH (21:47)
[2020-01-24] MEDS ORDERED: Ertapenem 1,000 MG in 0.9 % Sodium Chloride Mini Bag 100 ML IVPB ONE (23:00)
[2020-01-25] MEDS: Ipratropium/Albuterol Neb 3 ML IH SCH ×4 (04:01→22:19)
[2020-01-25 05:05] LABS: Basophils % 0.1 %; Eosinophils # 0.5 K/mcL (0.0-0.6); Eosinophils % 2.5 %; Hematocrit 38.7 % (35.3-44.9); Immature Granulocytes % 0.5 % (0-4); Lymphocytes # 2.8 K/mcL (0.6-4.6); Lymphocytes % 14.1 %; Mean Corpuscular HGB Conc 33.6 g/dL (31.6-35.5); Mean Corpuscular Hemoglobin 29.1 pg (28.0-33.3); Mean Corpuscular Volume 86.6 fL (83.0-100.0); Mean Platelet Volume 9.9 fL (9.4-12.4); Monocytes # 2.3 K/mcL (0.0-1.3); Monocytes % 11.4 %; Neutrophils # 14.2 K/mcL (1.6-8.9); Platelet Count 211 K/mcL (140-400); Red Blood Count 4.47 M/mcL (3.82-4.97); Red Cell Distribution Width 13.2 % (11.5-14.5); Segmented Neutrophils % 71.4 %; White Blood Count 19.9 K/mcL (4.3-11.1)
[2020-01-25 05:22] LABS: Calcium 8.4 mg/dL (8.6-10.3); Potassium 4.1 mEq/L (3.5-5.1)
[2020-01-25 05:23] LABS: Albumin 3.5 g/dL (3.5-5.7); Albumin/Globulin Ratio 1.7 (1.1-2.2); Bilirubin,Direct 0.2 mg/dL (0.0-0.2); Bilirubin,Indirect 0.5 mg/dL (0.0-1.0); Bilirubin,Total 0.7 mg/dL (0.3-1.0); Globulin 2.1 g/dL (2.4-3.5); Total Protein 5.6 g/dL (6.4-8.9)
[2020-01-25] MEDS: 0.9 % Sodium Chloride 1,000 ML IVC SCH (06:28)
[2020-01-25] MEDS: Insulin LISPRO 300 UNITS/3 ML VIAL SQ SCH ×4 (08:00→22:20)
[2020-01-25] MEDS ORDERED: Cyanocobalamin (B-12) 1,000 MCG/ML VIAL IM ONE (08:54)
[2020-01-25] MEDS ORDERED: Metoprolol XL (24 HR) Succ 50 MG TAB.ER.24H PO SCH ×2 (09:00→19:19)
[2020-01-25] MEDS ORDERED: NON-FORMULARY MEDICATION 1 EACH EACH (Umeclidinium Brm/Vilanterol Tr [Anoro Ellipta 62.5-2 IH SCH (09:00)
[2020-01-25] MEDS: Apixaban 5 MG TABLET PO SCH ×2 (09:22→22:07)
[2020-01-25] MEDS: *HR* HYDROcodone/Acet 7.5/325 mg TABLET PO PRN ×3 (09:22→22:15)
[2020-01-25] MEDS: Folic Acid 1 MG TABLET PO SCH (09:22)
[2020-01-25] MEDS: Multivit/Ca/Min/Fe/FA 1 TAB TABLET PO SCH (09:23)
[2020-01-25] MEDS: ANORO ELIPTA AER SCH ×2 (09:24→22:21)
[2020-01-25] MEDS: Fluticasone Propionate Nasal 50 MCG/SPRAY BOTTLE NS SCH ×3 (09:27→22:07)
[2020-01-25] MEDS ORDERED: 0.9 % Sodium Chloride 1,000 ML IVC SCH ×2 (13:15→19:20)
[2020-01-25] MEDS: Cefepime HCl 1,000 MG in Water for inj. (sterile) 10 ML IVP SCH (17:10)
[2020-01-25] MEDS ORDERED: 0.9 % Sodium Chloride 500 ML IV ONE (19:17)
[2020-01-25] MEDS: Insulin DETEMIR 100 UNIT/ML X5UNITS SQ SCH (22:21)
[2020-01-26] MEDS: Cefepime HCl 1,000 MG in Water for inj. (sterile) 10 ML IVP SCH ×4 (00:35→23:31)
[2020-01-26] MEDS: Ipratropium/Albuterol Neb 3 ML IH SCH ×4 (04:20→22:30)
[2020-01-26 05:59] LABS: Basophils % 0.1 %; Eosinophils % 2.4 %; Hematocrit 33.8 % (35.3-44.9); Hemoglobin 11.2 g/dL (11.5-15.4); Immature Granulocytes % 0.4 % (0-4); Lymphocytes # 1.6 K/mcL (0.6-4.6); Lymphocytes % 11.4 %; Mean Corpuscular HGB Conc 33.1 g/dL (31.6-35.5); Mean Corpuscular Hemoglobin 29.7 pg (28.0-33.3); Mean Corpuscular Volume 89.7 fL (83.0-100.0); Mean Platelet Volume 10.1 fL (9.4-12.4); Monocytes # 1.5 K/mcL (0.0-1.3); Monocytes % 10.6 %; Platelet Count 163 K/mcL (140-400); Red Blood Count 3.77 M/mcL (3.82-4.97); Red Cell Distribution Width 13.9 % (11.5-14.5); Segmented Neutrophils % 75.1 %; White Blood Count 14.3 K/mcL (4.3-11.1)
[2020-01-26 06:05] LABS: Eosinophils # 0.3 K/mcL (0.0-0.6); Neutrophils # 10.7 K/mcL (1.6-8.9)
[2020-01-26 06:17] LABS: BUN/Creatinine Ratio 18 (6-26); Blood Urea Nitrogen 19 mg/dL (8-23); Calcium 8.1 mg/dL (8.6-10.3); Carbon Dioxide 22 mEq/L (23-29); Chloride 110 mEq/L (98-107); Glucose 115 mg/dL (70-105); Osmolality,Calculated 285 (280-300); Potassium 4.6 mEq/L (3.5-5.1); Sodium 136 mEq/L (136-145); eGFR For African Americans > 60 (> 60); eGFR For Non-African Americans 53 (> 60)
[2020-01-26] MEDS: Multivit/Ca/Min/Fe/FA 1 TAB TABLET PO SCH (08:30)
[2020-01-26] MEDS: Folic Acid 1 MG TABLET PO SCH (08:30)
[2020-01-26] MEDS: Apixaban 5 MG TABLET PO SCH ×2 (08:31→20:52)
[2020-01-26] MEDS: Insulin LISPRO 300 UNITS/3 ML VIAL SQ SCH ×4 (08:31→20:54)
[2020-01-26] MEDS: ANORO ELIPTA AER SCH ×2 (08:34→20:54)
[2020-01-26] MEDS: *HR* HYDROcodone/Acet 7.5/325 mg TABLET PO PRN ×3 (08:42→22:07)
[2020-01-26] MEDS ORDERED: Metoprolol XL (24 HR) Succ 50 MG TAB.ER.24H PO SCH (09:00)
[2020-01-26] MEDS ORDERED: Ipratropium/Albuterol Neb 3 ML IH PRN (11:30)
[2020-01-26] MEDS: Fluticasone Propionate Nasal 50 MCG/SPRAY BOTTLE NS SCH ×2 (11:54→20:53)
[2020-01-26] MEDS: Budesonide/Formoterol 160/4.5 1 PUFF INH IH SCH ×2 (16:12→22:27)
[2020-01-26] MEDS: tiZANidine 4 MG TABLET PO PRN (20:52)
[2020-01-26] MEDS: Insulin DETEMIR 100 UNIT/ML X5UNITS SQ SCH (20:53)
[2020-01-26] MEDS ORDERED: Budesonide/Formoterol 160/4.5 1 PUFF INH IH SCH (22:00)
[2020-01-27] MEDS: *HR* HYDROcodone/Acet 7.5/325 mg TABLET PO PRN ×2 (04:18→10:12)
[2020-01-27] MEDS: Ipratropium/Albuterol Neb 3 ML IH SCH ×2 (04:22→09:14)
[2020-01-27 04:32] LABS: Basophils % 0.1 %; Eosinophils # 0.4 K/mcL (0.0-0.6); Eosinophils % 2.7 %; Hematocrit 30.7 % (35.3-44.9); Immature Granulocytes % 0.5 % (0-4); Lymphocytes # 1.7 K/mcL (0.6-4.6); Lymphocytes % 11.7 %; Mean Corpuscular HGB Conc 32.6 g/dL (31.6-35.5); Mean Corpuscular Hemoglobin 29.6 pg (28.0-33.3); Mean Corpuscular Volume 90.8 fL (83.0-100.0); Mean Platelet Volume 10.8 fL (9.4-12.4); Monocytes # 1.8 K/mcL (0.0-1.3); Monocytes % 12.4 %; Neutrophils # 10.6 K/mcL (1.6-8.9); Platelet Count 146 K/mcL (140-400); Red Blood Count 3.38 M/mcL (3.82-4.97); Red Cell Distribution Width 14.1 % (11.5-14.5); Segmented Neutrophils % 72.6 %; White Blood Count 14.6 K/mcL (4.3-11.1)
[2020-01-27 05:18] LABS: BUN/Creatinine Ratio 20 (6-26); Blood Urea Nitrogen 19 mg/dL (8-23); Calcium 7.9 mg/dL (8.6-10.3); Carbon Dioxide 19 mEq/L (23-29); Chloride 107 mEq/L (98-107); Glucose 203 mg/dL (70-105); Osmolality,Calculated 280 (280-300); Potassium 5.1 mEq/L (3.5-5.1); Sodium 131 mEq/L (136-145); eGFR For African Americans > 60 (> 60); eGFR For Non-African Americans 58 (> 60)
[2020-01-27 07:51] VITALS: BP 156/60
[2020-01-27] MEDS: Cefepime HCl 1,000 MG in Water for inj. (sterile) 10 ML IVP SCH (08:01)
[2020-01-27] MEDS: Multivit/Ca/Min/Fe/FA 1 TAB TABLET PO SCH (08:03)
[2020-01-27] MEDS: Apixaban 5 MG TABLET PO SCH (08:03)
[2020-01-27] MEDS: Folic Acid 1 MG TABLET PO SCH (08:04)
[2020-01-27] MEDS: Fluticasone Propionate Nasal 50 MCG/SPRAY BOTTLE NS SCH (08:10)
[2020-01-27] MEDS: Insulin LISPRO 300 UNITS/3 ML VIAL SQ SCH (08:37)
[2020-01-27] MEDS: ANORO ELIPTA AER SCH (08:42)
[2020-01-27] MEDS ORDERED: Metoprolol XL (24 HR) Succ 25 MG TAB.ER.24H PO SCH (09:00)
[2020-01-27] MEDS: Budesonide/Formoterol 160/4.5 1 PUFF INH IH SCH (09:15)
[2020-01-27] MEDS ORDERED: Aminoglycoside Consult 1 EACH MC ONE (11:28)
== END 2020-01-27 11:29 | disposition home or self-care (01) | DRG 682 ==
LOC: INPGRE 12:32 → EMEROOGRE 12:32 → INPGRE 16:45
PROVIDERS: ADMIT Family Medicine; ATTEND Family Medicine